=== PATIENT | female | born 1940 | race Caucasian/White ===

== ENCOUNTER 2020-07-02 12:22 | Outpatient (CLI) | payer MEDICARE, SELFPAY ==
--- NOTE | 2020-07-02 12:29 | US_ITS ---
WS: [id number] THYROID ULTRASOUND HISTORY: HYPOTHYROIDISM COMPARISON: None available. Right lobe: 0.7 cm x 0.6 cm x 2.5 cm (w x ap x l). Volume: 0.5 cm3. Small shrunken mildly nodular thyroid. No increased vascularity. No suspicious mass. Left lobe: 0.7 cm x 1.0 cm x 2.0 cm (w x ap x l). Volume: 0.6 cm3. Small shrunken mildly nodular thyroid. No increased vascularity or suspicious mass. Isthmus: 0.2 cm. US/US thyroid [id number] IMPRESSION: Bilateral moderate thyroid atrophy with no mass or nodule.
== END 2020-07-02 12:23 | disposition home or self-care (01) ==
LOC: RAD 12:27
PROVIDERS: PCP Nurse Practitioner Family; Visit Provider Nurse Practitioner Family
DX: E03.9 Hypothyroidism, unspecified (principal); E03.4 Atrophy of thyroid (acquired)
CPT/HCPCS: 76536

== ENCOUNTER 2020-08-15 12:15 | Outpatient (CLI) | payer MEDICARE, SELFPAY ==
[2020-08-15 13:14] LABS: Free T4 Free Thyroxine 1.37 ng/dL (0.82-1.77)
== END 2020-08-15 12:16 | disposition home or self-care (01) ==
LOC: LAB 12:20
PROVIDERS: PCP Nurse Practitioner Family; Visit Provider Nurse Practitioner Family
DX: E03.9 Hypothyroidism, unspecified (principal)
CPT/HCPCS: 36415; 84439; 84443

== ENCOUNTER 2022-03-24 10:35 | Outpatient (CLI) | payer MEDICARE, SELFPAY ==
--- NOTE | 2022-03-24 10:45 | MM_ITS ---
WS: [id number] BILATERAL SCREENING DIGITAL BREAST MAMMOGRAPHY WITH AUBREE DISPLACEMENT VIEWS. CAD PERFORMED. HISTORY: SCREENING COMPARISON: 09/05/2018 and 09/02/2017 Bilateral craniocaudal and mediolateral oblique views are performed with tomosynthesis and SM. Aubree displacement views in CC and MLO projection also performed. Breasts composition: There are scattered areas of fibroglandular density. Implants are intact with no interval change. No suspicious masses or calcifications within either mackenzie ast. Benign calcification LEFT breast. MM/[place] [id number] IMPRESSION: BI-RADS: 2-Benign FOLLOW-UP: 1 Year Follow-up
--- NOTE | 2022-03-24 11:41 | US_ITS ---
WS: [id number] THYROID ULTRASOUND HISTORY: HYPOTHYROIDISM COMPARISON: 07/02/2020 Right lobe: 1.0 cm x 1.2 cm x 2.4 cm (w x ap x l). Volume: 1.5 cm3. Small caliber heterogeneous shrunken thyroid. Margins of the thyroid very ill-defined. There are a fe w small cystic areas. Left lobe: 1.0 cm x 1.3 cm x 3.0 cm (w x ap x l). Volume: 2.1 cm3. Small caliber heterogeneous gland with a few small scattered cystic areas. No solid mass. Isthmus: 0.1 cm. No cervical chain lymphadenopathy. US/US thyroid [id number] IMPRESSION: 1. Atrophied thyroid gland. There are a few small benign cystic areas. No kendall d mass. 2. No adenopathy.
--- NOTE | 2022-03-24 11:41 | XR_ITS ---
WS: [id number] SCREENING DEXA SCAN [place] CLINICAL INFORMATION: AGE RELATED OSTEOPOROSIS W/O CURRENT PATHOLOGICAL FRACTURES COMPARISON: None. FINDINGS: The L1-L4 bone mineral density measures 0.830 g/cm2. This corresponds to a T score score of -2.9 and Z score of -0.6. Left femoral neck bone mineral density measures 0.639 g/cm2. This corresponds to a T score of -2.9 an d Z score of -0.5. Right femoral neck bone mineral density measures 0.662 g/cm2. This corresponds to a T score -2.7of an d Z score of -0.3. Mean femoral neck bone mineral density measures 0.650 g/cm2. This corresponds to a T score of -2.8 an d Z score of -0.4. XR/XR DEXA axial skeleton* [id number] IMPRESSION: Osteoporosis lumbar spine. Osteoporosis femoral necks. Patient's FRAX calculated 10 year probability for major osteoporotic fracture i s 15.4 % and osteoporotic hip fracture is 5.6%.
== END 2022-03-24 10:36 | disposition home or self-care (01) ==
PROVIDERS: PCP Nurse Practitioner Family; Visit Provider Nurse Practitioner Family
DX: Z12.31 Encounter for screening mammogram for malignant neoplasm of breast (principal); M81.0 Age-related osteoporosis without current pathological fracture; E03.9 Hypothyroidism, unspecified
CPT/HCPCS: 76536; 77063; 77067; 77080

== ENCOUNTER → 2022-11-02 13:40 | Outpatient (BNVA) | payer MEDICARE, SELFPAY | PROVIDERS: PCP Nurse Practitioner Family; Visit Provider Nurse Practitioner Family | DX: L82.1 Other seborrheic keratosis (principal); L81.4 Other melanin hyperpigmentation; L57.8 Other skin changes due to chronic exposure to nonionizing radiation; S90.111A Contusion of right great toe without damage to nail, initial encounter; S90.931A Unspecified superficial injury of right great toe, initial encounter; D48.5 Neoplasm of uncertain behavior of skin; L57.0 Actinic keratosis; Z08 Encounter for follow-up examination after completed treatment for malignant neoplasm; Z85.820 Personal history of malignant melanoma of skin; X58.XXXA Exposure to other specified factors, initial encounter; Y93.9 Activity, unspecified; Y92.9 Unspecified place or not applicable; Y99.9 Unspecified external cause status | CPT/HCPCS: 11102; 17000; 99213 ==

== ENCOUNTER → 2023-02-23 13:28 | Outpatient (BNVA) | payer MEDICARE, SELFPAY | PROVIDERS: PCP Nurse Practitioner Family; Visit Provider Dermatology | DX: D48.5 Neoplasm of uncertain behavior of skin (principal); L57.0 Actinic keratosis; L82.1 Other seborrheic keratosis; L81.4 Other melanin hyperpigmentation; L57.8 Other skin changes due to chronic exposure to nonionizing radiation; Z85.820 Personal history of malignant melanoma of skin; S90.111A Contusion of right great toe without damage to nail, initial encounter; X58.XXXA Exposure to other specified factors, initial encounter | CPT/HCPCS: 11102; 99214 ==

== ENCOUNTER → 2023-03-15 11:02 | Outpatient (BNVA) | payer MEDICARE, SELFPAY | PROVIDERS: PCP Nurse Practitioner Family; Visit Provider Dermatology | DX: D04.62 Carcinoma in situ of skin of left upper limb, including shoulder (principal); L82.0 Inflamed seborrheic keratosis | CPT/HCPCS: 17110; 17261 ==

== ENCOUNTER 2023-05-21 12:03 | Outpatient (CLI) | payer MEDICARE, SELFPAY ==
--- NOTE | 2023-05-21 12:11 | XR_ITS ---
WS: [id number] DEXA (DUAL ENERGY X-RAY ABSORPTIOMETRY) Bone mineral density was performed using a [employer] machine. HISTORY: OSTEOPOROSIS COMPARISON: 03/24/2022 Lumbar spine BMD (L1-L4): 0.891 g/cm2 T score: -2.4 Z score: 0.0 Total hip BMD: Left: 0.639 g/cm2. T score: -2.9 Z score: -0.4 Right: 0.637 g/cm2. T score: -2.9 Z score: -0.4 10 year probability of a major osteoporotic fracture is 16.8%. Compared to the prior study from 03/24/2022. Lumbar spine bone mineral density has increased by 7.3%. Bilateral hips bone mineral density has decreased by 1.8%. IMPRESSION: OSTEOPOROSIS based upon the WHO classification for females. Significant increase in bone mineral density within the lumbar spine since the prior study. No signif icant change in the hips.
== END 2023-05-21 12:04 | disposition home or self-care (01) ==
LOC: RAD 12:04
PROVIDERS: PCP Family Medicine; Visit Provider Family Medicine
DX: Z78.0 Asymptomatic menopausal state (principal); M81.0 Age-related osteoporosis without current pathological fracture
CPT/HCPCS: 77080

== ENCOUNTER 2023-05-21 12:04 | Outpatient (CLI) | payer MEDICARE, SELFPAY ==
--- NOTE | 2023-05-21 12:28 | US_ITS ---
WS: [id number] THYROID ULTRASOUND HISTORY: THYROID NODULE COMPARISON: 03/24/2022 Right lobe: 1.6 cm x 0.9 cm x 2.6 cm (w x ap x l). Volume: 1.9 cm3. Atrophic mildly heterogeneous thyroid. No mass identified. Left lobe: 1.5 cm x 1.0 cm x 2.9 cm (w x ap x l). Volume: 2.0 cm3. Atrophic mildly heterogeneous thyroid gland with a few cystic areas. No mass. Isthmus: 0.2 cm. IMPRESSION: Atrophic heterogeneous thyroid gland. Very similar to the prior study from 03/24/2022. No interval guillaume nge.
== END 2023-05-21 12:05 | disposition home or self-care (01) ==
LOC: RAD 12:04
PROVIDERS: PCP Family Medicine; Visit Provider Family Medicine
DX: E04.1 Nontoxic single thyroid nodule (principal)
CPT/HCPCS: 76536

== ENCOUNTER 2023-06-03 13:48 | Oncology outpatient (recurring) (ONCR) | payer MEDICARE, SELFPAY ==
[2023-06-03 16:02] LABS: Basophils % 0.4 %; Eosinophils # 0.1 10^3/uL (0.0-0.8); Eosinophils % 0.7 %; Hematocrit 35.6 % (36-47); Lymphocytes # 2.7 10^3/uL (0.8-4.8); Lymphocytes % 38.3 %; Mean Corpuscular HGB Conc 33.1 g/dL (30-55); Mean Corpuscular Volume 102.6 fl (85-98); Mean Platelet Volume 12.4 fL (7.4-10.4); Monocytes # 0.8 10^3/uL (0.2-0.9); Neutrophils # 3.37 10^3/uL (1.8-7.7); Neutrophils % 48.3 %; Nucleated Red Blood Cells % 0 %; Platelet Count 296 10^3/cmm (157-399); Red Blood Count 3.47 10^6/uL (3.85-5.65); White Blood Count 6.98 10^3/uL (3.29-11.43)
[2023-06-03 16:26] LABS: Alanine Aminotransferase 14 U/L (0-33); Albumin Level 3.5 g/dL (3.5-5.2); Alkaline Phosphatase 74 U/L (35-105); Anion Gap 11.2 (5-19); Aspartate Amino Transferase 21 U/L (0-32); Blood Urea Nitrogen 10 mg/dL (8-23); Calcium 9.7 mg/dL (8.5-10.5); Carbon Dioxide 30 mmol/L (22-29); Chloride 100 mmol/L (98-107); Creatinine Clr Calc Pharmacy 42.7328; Globulin 5.6 g/dL (1.3-4.6); Glucose 84 mg/dL (65-115); Immunoglobulin IGA 86 mg/dL (70-400); Immunoglobulin IGG 886 mg/dL (700-1600); Osmolality Calculated 282 mOsm/kg (285-295); Potassium 4.2 mmol/L (3.5-5.1); Sodium 137 mmol/L (136-145); Total Bilirubin 0.4 mg/dL (0.15-1.2); Total Protein 9.1 g/dL (6.6-8.7)
[2023-06-03 20:00] LABS: Immunoglobulin IGM > 8444 mg/dL (40-230)
[2023-06-08 11:35] LABS: ABNORMAL PROTEIN BAND 1 3.4 g/dL (NONE DETECTED); ALBUMIN 3.6 g/dL (3.8-4.8); ALPHA 1 GLOBULIN 0.2 g/dL (0.2-0.3); ALPHA 2 GLOBULIN 0.4 g/dL (0.5-0.9); BETA 1 GLOBULIN 0.5 g/dL (0.4-0.6); BETA 2 GLOBULIN 3.5 g/dL (0.2-0.5); GAMMA GLOBULIN 0.8 g/dL (0.8-1.7)
[2023-06-08 13:44] LABS: KAPPA/LAMBDA LIGHT CHAINS FREE 0.18 (0.26-1.65)
== END 2023-06-08 23:59 | disposition home or self-care (01) ==
PROVIDERS: PCP Family Medicine; Visit Provider Internal Medicine Hematology & Oncology
DX: L82.1 Other seborrheic keratosis (principal); D47.2 Monoclonal gammopathy; Z87.39 Personal history of other diseases of the musculoskeletal system and connective tissue; Z79.899 Other long term (current) drug therapy
CPT/HCPCS: 36415; 80053; 82784; 83883; 84155; 84165; 85025; 99204

== ENCOUNTER 2023-06-18 12:04 | Outpatient (CLI) | payer MEDICARE, SELFPAY ==
[2023-06-18 12:55] LABS: Total Volume, Urine 2500 mL
== END 2023-06-18 12:05 | disposition home or self-care (01) ==
LOC: LAB 12:05
PROVIDERS: PCP Family Medicine; Visit Provider Internal Medicine Hematology & Oncology
DX: D47.2 Monoclonal gammopathy; L82.1 Other seborrheic keratosis
CPT/HCPCS: 84156

== ENCOUNTER 2023-07-06 12:30 | Oncology outpatient (recurring) (ONCR) | payer MEDICARE, SELFPAY ==
[2023-06-22 16:24] LABS: Hepatitis A Antibody IgM Non-Reactive (Nonreactive); Hepatitis B Core AB, Total Non-Reactive (Nonreactive); Hepatitis B Surface AB < 3.5 (11.5-1000); Hepatitis B Surface Antigen Non-Reactive (Nonreactive); Hepatitis C Virus Antibody Non-Reactive (Nonreactive)
[2023-06-22 16:47] LABS: Immunoglobulin IGA 86 mg/dL (70-400); Immunoglobulin IGG 875 mg/dL (700-1600)
[2023-06-22 21:25] LABS: Immunoglobulin IGM > 2487 mg/dL (40-230)
[2023-06-30 05:50] LABS: Viscosity Serum 2.6 (1.5-1.9)
--- NOTE | 2023-07-06 12:30 | PETR_ITS ---
PROCEDURE INFORMATION: Exam: PET/CT Whole Body Exam date and time: 07/06/2023 1:12 PM Age: 82 years old Clinical indication: Condition or disease; Primary cancer: Monoclonal gammopathy, igm lambda paraproteinemia; Initial oncological staging LABS AND CLINICAL REPORTS: Glucose: 83 mg/dl Treatment strategy for malignancy (PET staging): Initial Staging (PI) TECHNIQUE: Imaging protocol: Following at least four-hour fasting and following the injection of radiopharmaceutical, low dose CT images were obtained. Then, PET images were obtained. Attenuation corrected images were constructed using the CT scan. Fused images of PET and CT were reviewed. The standardized uptake values (SUV) reported below are maximum values within a region of interest, expressed in gm/ml. Exam includes the whole body. Radiopharmaceutical: 11.06 mCi F-18 FDG (Fluorodeoxyglucose), IV. Time of imaging post radiopharmaceutical administration: 1 hour Injection site: Left antecubital COMPARISON: [place] [id number] 05/21/2023 12:47 PM FINDINGS: Brain: Visualized brain has normal physiologic uptake. Pharynx: No abnormal uptake. Larynx: No abnormal uptake. Lungs, pleura and trachea: No abnormal uptake. Mild biapical pleural scarring is noted. Streaky linear density in the lower lobes is consistent with atelectasis or scarring. Heart: Normal physiologic uptake. Mediastinal space: No abnormal uptake. Liver: No abnormal uptake. Rounded foci of low density within the liver are not radiotracer avid, likely related to benign cysts or hemangiomas, for example in the anterior left lobe measuring 1.7 cm in diameter on series 3, image 173. Gallbladder and bile ducts: No abnormal uptake. Pancreas: No abnormal uptake. Spleen: No abnormal uptake. Adrenal glands: No abnormal uptake. Kidneys and ureters: Normal physiologic uptake. Stomach and bowel: No abnormal uptake. Vasculature: No abnormal uptake. There are diffuse atherosclerotic changes. Lymph nodes: No abnormal uptake. No lymphadenopathy in the head, neck, chest, abdomen, pelvis, and extremities. Skeleton: No abnormal uptake in the visualized axial and appendicular skeleton. Degenerative changes in the spine are present. There is an old appearing moderate superior endplate compression fracture of L1 without elevated uptake. Soft tissues: No abnormal uptake in the visualized head, neck, chest, abdomen, pelvis, and extremities. Bilateral breast implants are noted. METRICS: Mediastinal blood pool: SUV max 1.3 PET/PET WB melanoma INITIAL [id number] assessment IMPRESSION: 1. No evidence of radiotracer avid malignancy. 2. Old-appearing compression fracture of the superior endplate of L1. 3. Low-density lesions in the liver are noted without elevated uptake, likely related to benign cysts or hemangiomas. 4. Additional nonurgent findings as detailed above.
== END 2023-07-09 23:59 | disposition home or self-care (01) ==
LOC: RAD 07-07 00:01 → ONCMED 07-07 18:46
PROVIDERS: Nurse Practitioner Family; PCP Family Medicine; Visit Provider Internal Medicine Hematology & Oncology
DX: L82.1 Other seborrheic keratosis (principal); D47.2 Monoclonal gammopathy; Z87.39 Personal history of other diseases of the musculoskeletal system and connective tissue; Z79.899 Other long term (current) drug therapy
CPT/HCPCS: 36415; 78816; 82784; 85810; 86705; 86706; 86709; 86803; 87340; A9552

== ENCOUNTER → 2023-09-27 13:09 | Outpatient (BNVA) | payer MEDICARE, SELFPAY | PROVIDERS: PCP Family Medicine; Visit Provider Nurse Practitioner Family | DX: L82.1 Other seborrheic keratosis (principal); L81.4 Other melanin hyperpigmentation; L57.8 Other skin changes due to chronic exposure to nonionizing radiation; L57.0 Actinic keratosis; Z86.007 Personal history of in-situ neoplasm of skin; Z85.820 Personal history of malignant melanoma of skin | CPT/HCPCS: 17000; 99213 ==

== ENCOUNTER → 2024-03-30 10:54 | Outpatient (BNVA) | payer MEDICARE, SELFPAY | PROVIDERS: PCP Family Medicine; Visit Provider Nurse Practitioner Family | DX: L89.152 Pressure ulcer of sacral region, stage 2 (principal); L81.4 Other melanin hyperpigmentation; L57.8 Other skin changes due to chronic exposure to nonionizing radiation; Z85.820 Personal history of malignant melanoma of skin; Z08 Encounter for follow-up examination after completed treatment for malignant neoplasm; Z86.007 Personal history of in-situ neoplasm of skin; L82.0 Inflamed seborrheic keratosis; L53.8 Other specified erythematous conditions; L29.89 Other pruritus; Z78.9 Other specified health status; D48.5 Neoplasm of uncertain behavior of skin; L57.0 Actinic keratosis | CPT/HCPCS: 11102; 17000; 17110; 99214 ==

== ENCOUNTER → 2024-08-15 09:56 | Outpatient (BNVA) | payer MEDICARE, SELFPAY | PROVIDERS: PCP Family Medicine; Visit Provider Nurse Practitioner Family | DX: L89.152 Pressure ulcer of sacral region, stage 2 (principal); L81.4 Other melanin hyperpigmentation; L57.8 Other skin changes due to chronic exposure to nonionizing radiation; Z85.820 Personal history of malignant melanoma of skin; Z08 Encounter for follow-up examination after completed treatment for malignant neoplasm; Z85.828 Personal history of other malignant neoplasm of skin; D48.5 Neoplasm of uncertain behavior of skin; L57.0 Actinic keratosis | CPT/HCPCS: 11102; 17000; 99214 ==

== ENCOUNTER 2024-11-28 11:11 | Outpatient (CLI) | payer MEDICARE, SELFPAY ==
--- NOTE | 2024-11-28 11:21 | USCV_ITS ---
Brenda Thomas Age: 84 Gender: F : 1940 Exam Date: 11/28/2024 11:39 Ordering Phys: Niles Segal MD Technologist: [place]am [place] [facility] [place]: cp sob murmur BP: 100 / 65 HR: 71 Rhythm: Sinus Technical Quality: Adequate MEASUREMENTS (Male / Female) Normal Values 2D ECHO LV Diastolic Diameter PLAX 4.0 cm 4.2 - 5.9 / 3.9 - 5.3 cm IVS Diastolic Thickness 1.2 cm 0.6 - 1.0 / 0.6 - 0.9 cm IVS Systolic Thickness 1.5 cm LVPW Diastolic Thickness 1.3 cm 0.6 - 1.0 / 0.6 - 0.9 cm LVPW Systolic Thickness 1.4 cm LVOT Diameter 2.1 cm LV Ejection Fraction 2D Teich 54.8 % LV Ejection Fraction MOD 4C 59.3 % LV Ejection Fraction MOD 2C 64.5 % LV Ejection Fraction 2C AL 64.9 % LA Diameter 2.9 cm RA Systolic Volume 4C AL 40.1 ml RA Systolic Volume 4C MOD 39.5 ml LA Sys Volume AL 57.2 cm cubed LA Sys Volume Index AL 40.3 cm cubed/m squared Aorta at Sinotubular Diameter 3.3 cm IVC Diameter 2.1 cm M-MODE LA Ao Ratio MM 1.3 AV Cusp Separation MM 2.5 cm DOPPLER AV Peak Velocity 358.0 cm/s LVOT Peak Velocity 81.0 cm/s AV Area Cont Eq vti 2.7 cm squared AV Area Cont Eq pk 0.8 cm squared MV Peak Velocity 146.0 cm/s MV Area PHT 6.7 cm squared Mitral E to A Ratio 0.9 TV Peak Velocity 279.5 cm/s TR Peak Velocity 321.0 cm/s TR Peak Gradient 41.2 mmHg TV Peak E Velocity 58.0 cm/s PV Peak Velocity 77.0 cm/s FINDINGS Left Ventricle Normal left ventricular size and systolic function, EF 64% . Mild hypokinesis of the basal inferior wall segment.mild left ventricular hypertrophy. Grade I/IV diastolic dysfunction (abnormal relaxation filling pattern), normal to mildly elevated filling pressures. Right Ventricle Normal right ventricular size and systolic function. Right Atrium Mildly increased right atrial size. Left Atrium Moderately increased left atrial volume 39 ml/m squared. IA Septum Normal interatrial septum. Mitral Valve Mild mitral valve regurgitation. Aortic Valve Moderate aortic valve regurgitation. Tricuspid Valve Trace tricuspid valve regurgitation. Pulmonic Valve Pulmonic valve not well visualized. Pericardium No pericardial effusion. Aorta Normal aortic annulus size. IVC Normal inferior vena cava. CONCLUSIONS Normal left ventricular size and systolic function, EF 64% . Mild hypokinesis of the basal inferior wall segment.mild left ventricular hypertrophy. Grade I/IV diastolic dysfunction (abnormal relaxation filling pattern), normal to mildly elevated filling pressures. Moderately increased left atrial volume 39 ml/m squared. Mildly increased right atrial size. Mild mitral valve regurgitation. Moderate aortic valve regurgitation. Trace tricuspid valve regurgitation. Estimated pulmonary artery peak systolic pressure 44 mmHg-mild pulmonary hypertension There is no pericardial effusion. There are no intracardiac masses. No similar previous studies are available for comparison Dr Sirisha Pitt MD FAC (Electronically Signed) Final Date: 06 December 2024 17:37 S
== END 2024-11-28 11:12 | disposition home or self-care (01) ==
PROVIDERS: PCP Family Medicine; Visit Provider Family Medicine
DX: R55 Syncope and collapse (principal); I51.89 Other ill-defined heart diseases; R93.1 Abnormal findings on diagnostic imaging of heart and coronary circulation; I51.7 Cardiomegaly; I34.0 Nonrheumatic mitral (valve) insufficiency; I35.8 Other nonrheumatic aortic valve disorders
CPT/HCPCS: 93306

== ENCOUNTER → 2025-01-19 11:16 | Outpatient (BNVA) | payer MEDICARE, SELFPAY | PROVIDERS: PCP Family Medicine; Visit Provider Internal Medicine Cardiovascular Disease | DX: I35.1 Nonrheumatic aortic (valve) insufficiency (principal); R42 Dizziness and giddiness | CPT/HCPCS: 99204 ==